=== PATIENT | male | born 1985 | race Caucasian/White ===

== ENCOUNTER 2018-08-19 17:50 | Emergency (ER) | payer BC ==
[~2018-08-19] VITALS: Ht 182.9 cm; Wt 109.1 kg
[2018-08-19 18:21] LABS: BASO # 0.1 10^3/uL (0.0-0.2); EOS # 0.8 10^3/uL (0.0-0.50); EOS % 12.4 % (0.0-3.0); HEMATOCRIT 45.4 % (42.0-52.0); HEMOGLOBIN 15.4 g/dl (13.5-17.5); LYMPH # 2.7 10^3/uL (1.5-4.5); MEAN CORPUSCULAR HEMOGLOBIN 31.1 pg (27.0-33.0); MEAN CORPUSCULAR HGB CONC 33.9 g/dl (32.0-36.5); MEAN CORPUSCULAR VOLUME 91.7 fl (80.0-96.0); MONO # 0.7 10^3/uL (0.0-0.8); MONO % 10.5 % (0.0-5.0); NEUTROPHILS # 2.5 10^3/uL (1.8-7.7); PLATELET COUNT, AUTOMATED 387 10^3/uL (150-450); RED BLOOD COUNT 4.95 10^6/uL (4.30-6.10); WHITE BLOOD COUNT 6.8 10^3/uL (4.0-10.0)
[2018-08-19 19:25] LABS: ALBUMIN 3.7 GM/DL (3.2-5.2); ALT/SGPT 81 U/L (12-78); AMYLASE 77 U/L (25-115); BILIRUBIN,DIRECT < 0.1 MG/DL (0.0-0.2); BILIRUBIN,TOTAL 0.3 MG/DL (0.2-1.0); BLOOD UREA NITROGEN 9 MG/DL (7-18); CALCIUM LEVEL 8.8 MG/DL (8.5-10.1); CARBON DIOXIDE LEVEL 29 MEQ/L (21-32); CHLORIDE LEVEL 105 MEQ/L (98-107); CREATININE FOR GFR 1.08 MG/DL (0.70-1.30); GLOMERULAR FILTRATION RATE > 60.0 (>60); GLUCOSE, FASTING 103 MG/DL (70-100); LIPASE 109 U/L (73-393); POTASSIUM SERUM 4.4 MEQ/L (3.5-5.1); SODIUM LEVEL 141 MEQ/L (136-145); TOTAL PROTEIN 7.5 GM/DL (6.4-8.2)
--- NOTE | 2018-08-19 19:45 | REPVR ---
EXAM: US Abdomen Limited, Right Upper Quadrant EXAM DATE/TIME: 08/19/2018 6:58 PM CLINICAL HISTORY: 33 years old, male; Pain; Abdominal pain; Localized; Right upper quadrant (ruq); Additional info: Ruq pain TECHNIQUE: Imaging protocol: Real-time ultrasound of the abdomen with image documentation. Examination was focused on the right upper quadrant. COMPARISON: No relevant prior studies available. FINDINGS: Liver: There is severe increased echogenicity of the liver consistent with severe fatty infiltration. Gallbladder: The gallbladder is fluid filled and there is no evidence of gallstones. The gallbladder wall measures 2 mm. Common bile duct: The common bile duct is normal in size measuring 5 mm. Pancreas: The pancreas is mostly obscured by bowel gas and cannot be evaluated. Right kidney: The right kidney measures 11 CM in length and there is no evidence of hydronephrosis. This was a limited ultrasound of the liver, gallbladder and right kidney. IMPRESSION: 1. No evidence of gallstones. 2. Severe fatty infiltration of the liver. 3. The pancreas is obscured by bowel gas. Electronically signed by: Blair Abraham On 08/19/2018 19:44:52 PM
[2018-08-19 20:05] LABS: APPEARANCE, URINE CLEAR (CLEAR); BACTERIA, URINE AUTO NEGATIVE (NEGATIVE); BILIRUBIN, URINE AUTO NEGATIVE (NEGATIVE); BLOOD, URINE BLOOD NEGATIVE (NEGATIVE); COLOR, URINE YELLOW (YELLOW); GLUCOSE, URINE (UA) AUTO NEGATIVE (NEGATIVE); KETONE, URINE AUTO NEGATIVE (NEGATIVE); LEUKOCYTE ESTERASE, URINE AUTO NEGATIVE (NEGATIVE); NITRITE, URINE AUTO NEGATIVE (NEGATIVE); PROTEIN, URINE AUTO NEGATIVE (NEGATIVE); RBC, URINE AUTO 1 /HPF (0-3); SPECIFIC GRAVITY URINE AUTO 1.005 (1.002-1.035); SQUAMOUS EPITHELIAL CELL UR AU 0 /HPF (0-6); UROBILINOGEN, URINE AUTO 0.2 mg/dL (0.0-2.0); WBC, URINE AUTO 0 /HPF (0-3)
[2018-08-19] MEDS ORDERED: ONDA4TAB6 PO (20:39)
[2018-08-19 20:46] VITALS: BP 126/60
[2018-08-19] MEDS ORDERED: ONDANSETRON 4 MG ORAL DISINTEGRATING TAB (Q0162 PER 1MG) PO ONE (21:00)
== END 2018-08-19 20:58 | disposition home or self-care (01) ==
LOC: M ED 17:50
DX: A08.4 Viral intestinal infection, unspecified (principal); K76.0 Fatty (change of) liver, not elsewhere classified; Z87.891 Personal history of nicotine dependence; Z91.018 Allergy to other foods; Z88.8 Allergy status to other drugs, medicaments and biological substances
CPT/HCPCS: 76705; 80048; 80076; 81001; 82150; 83690; 85025; 99284; Q0162

== ENCOUNTER → 2018-09-13 | Outpatient (REF) | payer BC ==
[~2018-09-13] MED LIST: ONDA4TAB6 PO
[2018-09-13 10:44] LABS: HEMATOCRIT 44.1 % (42.0-52.0); HEMOGLOBIN 14.8 g/dl (13.5-17.5); MEAN CORPUSCULAR HEMOGLOBIN 31.2 pg (27.0-33.0); MEAN CORPUSCULAR HGB CONC 33.6 g/dl (32.0-36.5); MEAN CORPUSCULAR VOLUME 92.8 fl (80.0-96.0); PLATELET COUNT, AUTOMATED 442 10^3/uL (150-450); RED BLOOD COUNT 4.75 10^6/uL (4.30-6.10); WHITE BLOOD COUNT 4.3 10^3/uL (4.0-10.0)
[2018-09-13 11:16] LABS: ALBUMIN 3.7 GM/DL (3.2-5.2); ALT/SGPT 77 U/L (12-78); BILIRUBIN,TOTAL 0.6 MG/DL (0.2-1.0); BLOOD UREA NITROGEN 8 MG/DL (7-18); CALCIUM LEVEL 9.1 MG/DL (8.5-10.1); CARBON DIOXIDE LEVEL 30 MEQ/L (21-32); CHLORIDE LEVEL 108 MEQ/L (98-107); CHOLESTEROL LEVEL 227 MG/DL (<200); CHOLESTEROL RISK RATIO 5.404 (<5); CREATININE FOR GFR 1.02 MG/DL (0.70-1.30); FERRITIN 46 NG/ML (26-388); GLOMERULAR FILTRATION RATE > 60.0 (>60); GLUCOSE, FASTING 89 MG/DL (70-100); HDL CHOLESTEROL 42 MG/DL (>40); IRON (FE) 151 UG/DL (65-175); LDL CHOLESTEROL 150 MG/DL (<100); NON-HDL-C 185 MG/DL; PERCENT SATURATION 39.1 % (19.7-50.0); POTASSIUM SERUM 4.1 MEQ/L (3.5-5.1); SODIUM LEVEL 141 MEQ/L (136-145); TOTAL IRON BINDING CAPACITY 386 UG/DL (250-450); TOTAL PROTEIN 7.2 GM/DL (6.4-8.2); TRIGLYCERIDES LEVEL 175 MG/DL (<150)
[2018-09-13 11:29] LABS: HEPATITIS B SURFACE ANTIGEN NEGATIVE (NEGATIVE)
[2018-09-13 11:56] LABS: HEPATITIS B CORE ANTIBODY IGM NEGATIVE (NEGATIVE)
[2018-09-13 11:58] LABS: HEPATITIS A ANTIBODY IGM NEGATIVE (NEGATIVE)
== END ==
LOC: M SFHCPLAZ 08:28
PROVIDERS: ATTEND Nurse Practitioner Family
DX: Z00.00 Encounter for general adult medical examination without abnormal findings (principal); K76.0 Fatty (change of) liver, not elsewhere classified; R94.5 Abnormal results of liver function studies; Z13.220 Encounter for screening for lipoid disorders

== ENCOUNTER → 2018-09-28 | Outpatient (REF) | payer BC | LOC: M LAB REF 14:48 | PROVIDERS: ATTEND Surgery | DX: D17.9 Benign lipomatous neoplasm, unspecified (principal) ==

== ENCOUNTER → 2018-10-17 | Outpatient (REF) | payer BC | LOC: M LAB REF 12:36 | PROVIDERS: ATTEND Surgery | DX: D17.1 Benign lipomatous neoplasm of skin and subcutaneous tissue of trunk (principal) ==

== ENCOUNTER → 2020-06-27 | Outpatient (CLI) | payer BC ==
[~2020-06-27] MED LIST changes: +NAPR-885 PO; +VITMTA PO
== END ==
LOC: M LABSMTC 09:40
PROVIDERS: ATTEND Anesthesiology
DX: Z01.812 Encounter for preprocedural laboratory examination (principal); Z20.822 Contact with and (suspected) exposure to COVID-19

== ENCOUNTER 2020-07-02 07:27 | Day surgery (SDC) | payer BC, OTHER ==
[~2020-07-02] VITALS: Ht 182.9 cm; Wt 103.0 kg
[~2020-07-02 07:27] MED LIST changes: +LIDOCAINE 1% MDV 20ML VIAL SQ PRN; +LR 1,000 ML IV ONE
--- OUTSIDE RECORDS SUMMARY | 2020-07-02 07:31 | CCD ---
Author Author [facility] Organization [facility] Address Unknown Phone Unavailable Care Team Providers Care Seat Cover Maker Name Role Phone Lyndon Casillas MD Unavailable Unavailable MollisonLyndon MD Unavailable Unavailable MollisonLyndon MD Unavailable Unavailable MollisonLyndon MD Unavailable Unavailable MollisonLyndon MD Unavailable Unavailable MollisonLyndon MD Unavailable Unavailable MollisonLyndon MD Unavailable Unavailable MollisonLyndon MD Unavailable Unavailable MollisonLyndon MD Unavailable Unavailable MollisonLyndon MD Unavailable Unavailable MollisonLyndon MD Unavailable Unavailable MollisonLyndon MD Unavailable Unavailable MollisonLyndon MD Unavailable Unavailable MollisonLyndon MD Unavailable Unavailable MollisonLydnon MD Unavailable Unavailable MollisonLyndon MD Unavailable Unavailable MollisonLyndon MD Unavailable Unavailable MollisonLyndon MD Unavailable Unavailable MollisonLyndon MD Unavailable Unavailable KamarisonLyndon MD Unavailable Unavailable KamarisonLyndon MD Unavailable Unavailable KamarisonLyndon MD Unavailable Unavailable MollisonLyndon MD Unavailable Unavailable MollisonLyndon MD Unavailable Unavailable MollisonLyndon MD Unavailable Unavailable MollisonLyndon MD Unavailable Unavailable Re-disclosure Warning The records that you are about to access may contain information from federally-assisted alcohol or drug abuse programs. If such information is present, then the following federally mandated warning applies: This information has been disclosed to you from records protected by federal confidentiality rules (42 CFR part 2). The federal rules prohibit you from making any further disclosure of this information unless further disclosure is expressly permitted by the written consent of the person to whom it pertains or as otherwise permitted by 42 CFR part 2. A general authorization for the release of medical or other information is NOT sufficient for this purpose. The Federal rules restrict any use of the information to criminally investigate or prosecute any alcohol or drug abuse patient.The records that you are about to access may contain highly sensitive health information, the redisclosure of which is protected by Article 27-F of the [facility] Public Health law. If you continue you may have access to information: Regarding HIV / AIDS; Provided by facilities licensed or operated by the [facility] Office of Mental Health; or Provided by the [facility] Office for People With Developmental Disabilities. If such information is present, then the following [facility] mandated warning applies: This information has been disclosed to you from confidential records which are protected by state law. State law prohibits you from making any further disclosure of this information without the specific written consent of the person to whom it pertains, or as otherwise permitted by law. Any unauthorized further disclosure in violation of state law may result in a fine or chcf sentence or both. A general authorization for the release of medical or other information is NOT sufficient authorization for further disc losure. Family History Family Member Name Family Member Gender Family Member Status Date o f Status Description Data Source(s) Unknown Male Problem [facility] ([facility]) Unknown Unknown Problem [facility] ([facility]) Encounters Encounter Providers Location Date Indications Data Source(s ) Outpatient Attender: Maximo Corrigan/Claude/Lonnie/Re indl 03/07/2020 09:10:00 AM EDT [facility] ([facility], ) Outpatient Attender: Maximo Corrigan/Claude/Lonnie/Re indl 01/25/2020 08:40:00 AM EDT [facility] ([facility], ) Outpatient 01/16/2020 09:15:00 AM EDT [facility] Out[facility] 01/16/2020 08:30:00 AM EDT [facility] Outpatient 01/16/2020 08:30:00 AM EDT [facility] Outpatient Attender: Maximo Corrigan/Claude/Lonnie/Re indl 12/26/2019 10:20:00 AM EDT [facility] ([facility], ) Outpatient Attender: Maximo Corrigan/Claude/Lonnie/Re indl 12/13/2019 10:30:00 AM EDT [facility] ([facility] ) Insurance Providers Payer name Policy type / Coverage type Policy ID Covered green party ID Covered green party's relationship to jimenez Policy Jimenez Plan Information [employer] [id number] [employer] [id number] SP [id number] [facility] Health Maintenance Organization (HMO) [id number] Self [id number] ANSI-Commercial [id number] [facility] Health Maintenance Organization (O) [id number] Self [id number] [employer] [id number] SP [id number] ANSI-Commercial [id number] [employer] [place] P[place] [id number] SP [id number] BS Federal Plan Commercial [id number] Self [id number] [employer] [place] [id number] S [id number] Surgeries/Procedures Procedure Description Date Indications Data Source(s) X-Ray Shoulder Complete 12/13/2019 12:00:00 AM EDT [facility] ([facility], ) RADEX SHOULDER COMPLETE MINIMUM 2 VIEWS 12/13/2019 12: 00:00 AM EDT [facility] ([facility]) Results ID Date Data Source [id number] 06/27/2020 09:35:00 AM EST [facility] Name Value Range Interpretation Code Description Data Hannah rce(s) Supporting Document(s) SARS coronavirus 2 RNA Not Detected [facility] This lab was ordered by [facility] and reported by [facility]. ID Date Data Source [id number] 01/16/2020 11:14:00 AM EDT [facility] MRI UPR EXT LEFT W Contrast Joint INDICA TION: Pain in left shoulder COMPARISON: None TECHNIQUE: Multiplanar imaging is performed of the left shoulder using multiple pulse sequences, following fluoroscopically guided injection of contrast material for MR arthrography. FINDINGS: Fluid within the joint extends into the subscapular recess and subcoracoid bursa. There is an extra synovial ganglion cyst associated with tear in the 6:00-7:00 position of the inferior glenoid/infraglenoid ligament. The complicated extra synovial ganglion cyst measures 2.1 x 2.0 x 1.6 cm, containing internal debris and septations. A tear is seen in the anterior aspect of the glenoid labrum at approximately 8:30 o'clock-9:30 o'clock, series 7 image 8. Tendinosis of the anterior supraspinatus. No rotator cuff tear identified. Increased signal noted within the proximal aspect of the long head of the biceps. Probable focal tear in the anterior aspect of the tendon of the long head of the biceps as it inserts on the superior glenoid. IMPRESSION: Focal tear at the insertion of the tendon of long head of the biceps at the insertion on the superior glenoid. 8:30 o'clock- 9:30 o'clock tear of the anterior glenoid. Tear in the inferior glenoid 7:00- 6:00 with approximately 2 cm complicated extrasynovial ganglion cyst. Professional interpretation performed at [facility] . Name Value Range Interpretation Code Description Data [facility](s) Supporting Document(s) ID Date Data Source [id number] 01/16/2020 09:23:00 AM EDT [employer] Fluoroscopic Guidance For Needle Placeme ntINDICATION: Left shoulder pain, MRI arthrogramRadiation Exposure Time: 10.6 secNumber Of Images Obtained: 1 IMPRESSION: Fluoroscopic supervision during left shoulder contrast injection. Professional interpretation performed at [facility] . Name Value Range Interpretation Code Description Data Hannah rce(s) Supporting Document(s) ID Date Data Source [id number] 01/16/2020 03:58:00 PM EDT [employer] Left SHOULDER ARTHROGRAM w/ MRI TO FOLLO W INDICATION: Left shoulder pain TECHNIQUE/FINDINGS: Informed consent was obtained. The left shoulder was prepped and draped in the usual sterile fashion. 1% Lidocaine was injected as a local anesthetic. A 3.5 inch 22-Gauge spinal needle was guided into the shoulder capsule under fluoroscopic visualization. A solution containing Gadolinium, Omni-300 and a sterile water solution was then injected. Fluoroscopy was personally supervised by Dr. Vizcarra Radiation Exposure Time: 10.6 seconds Number of images obtained: 1 IMPRESSION: Left shoulder arthrogram as described. Please associated MRI report. Procedure performed by MAYCO Robbins. Professional interpretation performed at [facility] . Name Value Range Interpretation Code Description Data Hannah rce(s) Supporting Document(s) Procedure Vital Signs ID Date Data Source UNK Name Value Range Interpretation Code Description Data Source(s) Body weight 103.421 kg 103.421 kg [facility] ([facility]) [place] body weight 178 [lb_av] 178 [lb_av] [facility]) Body mass index (BMI) [Ratio] 30.9 kg/m2 30.9 k g/m2 [facility] ([facility]) Body weight 228.00 [lb_av] 228.00 [lb_av] [facility] ([facility]) Body height 72 [in_i] 72 [in_i] [facility] ([facility]) 6'0" Body temperature 97.4 [degF] 97.4 [degF] [facility] ([facility])
[2020-07-02] MEDS ORDERED: CLAR10CA3 PO (07:58)
[2020-07-02] MEDS ORDERED: propofoL 200 MG/20 ML VIAL As Ordered ONE (08:42)
[2020-07-02] MEDS ORDERED: dexameTHASONE 4 MG/ML 1ML VIAL (J1100 PER 1MG) As Ordered ONE (08:42)
[2020-07-02] MEDS ORDERED: ACETAMINOPHEN 1000MG 100ML IV BTL (OFIRMEV) (J0131 PER 10MG) As Ordered ONE (08:42)
[2020-07-02] MEDS ORDERED: LIDOCAINE 2% 100MG/5ML SDV (FOR ANES.) As Ordered ONE (08:42)
[2020-07-02] MEDS ORDERED: MIDAZOLAM INJ 2MG/2ML VIAL (J2250 PER 1MG) As Ordered ONE (08:42)
[2020-07-02] MEDS ORDERED: SUGAMMADEX SODIUM 500 MG/5 ML VIAL (BRIDION) As Ordered ONE (08:42)
[2020-07-02] MEDS ORDERED: ROCURONIUM BROMIDE 50 MG/5 ML VIAL As Ordered ONE (08:42)
[2020-07-02] MEDS ORDERED: ONDANSETRON 4MG/2ML VIAL As Ordered ONE (08:42)
[2020-07-02] MEDS ORDERED: KETOROLAC 60MG 2ML VIAL As Ordered ONE (08:42)
[2020-07-02] MEDS ORDERED: fentaNYL 100 MCG/2 ML INJECTION (J3010) As Ordered ONE (08:43)
[2020-07-02] MEDS ORDERED: CLINDAMYCIN 600 MG/50 ML PREMIX BAG As Ordered ONE (09:10)
[2020-07-02] MEDS ORDERED: EPINEPHrine INJ 1 MG/ML 1ML AMP XX ONE (09:15)
[2020-07-02] MEDS ORDERED: dexameTHASONE 10MG/1ML VIAL PRES.FREE (J1100 PER 1MG) XX ONE (09:15)
[2020-07-02] MEDS ORDERED: BUPIVACAINE HCL 0.5% 30 ML VIAL XX ONE (09:15)
[2020-07-02] MEDS ORDERED: LIDOCAINE 1% MDV 20ML VIAL XX ONE (09:15)
[2020-07-02] MEDS: fentaNYL 100 MCG/2 ML INJECTION (J3010) IV PRN ×2 (09:43→09:53)
[2020-07-02] MEDS: MIDAZOLAM INJ 2MG/2ML VIAL (J2250 PER 1MG) IV PRN ×2 (09:43→09:44)
[2020-07-02] MEDS ORDERED: CLINDAMYCIN 600 MG in IV 1 EA IV ONE (09:45)
[2020-07-02] MEDS ORDERED: EPINEPHrine 1MG/ML INJ 30ML MD-VIAL As Ordered ONE (09:48)
[2020-07-02] MEDS ORDERED: fentaNYL 100 MCG/2 ML INJECTION (J3010) IV PRN (12:10)
[2020-07-02] MEDS ORDERED: PERCOCET 5MG/325MG TAB PO PRN ×2 (12:10→12:15)
[2020-07-02] MEDS ORDERED: LR 1,000 ML IV SCH ×2 (12:10→12:15)
[2020-07-02] MEDS ORDERED: METOCLOPRAMIDE INJ 10MG/2ML VIAL (J2765 PER 1) IV PRN (12:10)
[2020-07-02] MEDS ORDERED: ONDANSETRON 4MG/2ML VIAL IV PRN ×2 (12:10→12:15)
[2020-07-02] MEDS ORDERED: MORPHINE 2 MG/ML 1ML VIAL (J2270) IV PRN (12:15)
[2020-07-02] MEDS ORDERED: ACETAMINOPHEN TAB 650MG DOSE (2X325MG) PO PRN (12:15)
[2020-07-02 12:50] VITALS: BP 139/80
--- NOTE | 2020-07-02 14:39 | RO ---
OPERATIVE NOTE DATE OF OPERATION: 07/02/2020 PREOPERATIVE DIAGNOSIS: Left shoulder instability. POSTOPERATIVE DIAGNOSIS: Left shoulder instability. PLANNED PROCEDURE: Left shoulder arthroscopy, stabilization, and possible biceps tenodesis. PROCEDURES PERFORMED: Left shoulder arthroscopy, labral repair, and stabilization. SURGEON: Maximo Casillas MD ANESTHESIOLOGIST: Kranthi Sampson M.D. ANESTHESIA: General anesthetic and preoperative block. OPERATIVE PREAMBLE: This 35-year-old man had signs of inferior labral tear, as well as posterior labral tear with paralabral cyst and possible superior labrum anterior to posterior SLAP tear. He wished to go ahead with surgery after a prolonged course of nonsurgical management. This was for a right shoulder arthroscopy, stabilization, and possible biceps tenodesis. He wished to go ahead and signed the consent form for surgery, as well as the possible need for blood products. We marked the left upper extremity and proceeded to surgery. He had no further questions. The patient received a preoperative block. DESCRIPTION OF PROCEDURE: The patient was brought to the operating theater. He was placed in the left lateral decubitus with the aid of the heaton bag positioner. Axillary roll was placed. All bony prominences were appropriate padded including at the peroneal nerve. General anesthesia was induced. The limb was prepped and draped in the usual sterile fashion. Chlorhexidine based prep solution was used allowing this to thoroughly dry for over three minutes prior to draping. Then 600 mg of IV clindamycin was administered due to cephalosporin allergy for surgical prophylaxis. The arm was prepped and draped in the usual sterile fashion with 15 pounds of traction and the traction set up at 45 degrees of abduction at the shoulder. Preoperative time-out was performed to confirm the site, the patient, and the surgery. I began by making the standard posterior arthroscopy portal and inserting the arthroscope into the joint. I made standard anterior-superior, as well as anterior going through the rotator interval portal and used a small Arthrex size 5 cannula, as well as an 8.3 mm cannula inferior to this just above the subscapularis tendon. I also used another purple 8.3 mm cannula posterior switching stick. I examined the full intraarticular extent of the shoulder. Glenoid and humeral head cartilage were normal. Normal axillary recess. No loose bodies. No Hill-Sachs deformity. Normal bare spot on the humerus, as well as on the glenoid. Undersurface of the rotator cuff tendon appeared normal. Biceps tendon appeared normal along with the root being stable. No synovitis, no rupture, no tears, and no obvious SLAP tear. Biceps groove was stable and solid to probing. There was, however, a labral tear from approximately 3:30 with a 3 p.m. being anteriorly to approximately 7 o'clock in the posterior-inferior aspect of the glenoid. I used an elevator to elevate the tissue around the tear and then used a shaver to create a bleeding bed of bone for the labrum to be able to heal down. I cleaned up a small amount of frayed labrum with the shaver and a small flap at approximately the 11 o'clock position. I then inserted the scope anteriorly. I used labral tape in a luggage tag stitch formation at the 7 o'clock aspect of the labrum. I performed a thorough decompression to try to decompress the paralabral cyst in that location as well as slightly proximal to this near the 8 o'clock to 8:30 position. I then used an Arthrex 2.9 mm PushLock anchor at approximately the 7 o'clock position, tapped this in place, and cut the sutures short. I then performed a similar technique at the anterior-inferior labrum inserting anchors with an inferior to superior and anterior to posterior capsular labral shift. I inserted three anterior-inferior anchors at the 5:30, 4:30 and 3:30 positions, again using Arthrex 2.9 mm BioComposite PushLock anchors with labral tape and luggage tag type stitches. This achieved a very stable fixation of the labrum. Threaded cannulas were removed. Wound was sterilely irrigated and portal sites closed with interrupted 2-0 Vicryl sutures. The skin was covered with a wet-to-dry dressing followed by application of Steri-Strips, Adaptic, 4 x 4 gauze, ABD dressing, cloth tape, and then a sling to the upper extremity. The patient was awoken from general anesthetic, transferred off the operating table, and taken to the postanesthetic unit in stable condition. All sponge count, needle count, and instrument counts were correct. No complications. Estimated blood loss 20 mL. PLAN: The patient will be discharged to home according to surgical criteria. I spoke to Cass as per the patient's request after surgery. I informed her of the postoperative aftercare, as well as narcotic counseling. A prescription will be sent to [facility]. Follow-up in the office in two weeks time. I started him with pendulum exercises, hand, wrist and elbow exercises; but no lifting of the upper extremity and definitely no external rotation beyond neutral. MARLENE
== END 2020-07-02 13:10 | disposition home or self-care (01) ==
LOC: M SDC 07:27
PROVIDERS: ATTEND Orthopaedic Surgery Sports Medicine
DX: M25.311 Other instability, right shoulder (principal); S43.492A Other sprain of left shoulder joint, initial encounter; F17.220 Nicotine dependence, chewing tobacco, uncomplicated; R76.11 Nonspecific reaction to tuberculin skin test without active tuberculosis; X58.XXXA Exposure to other specified factors, initial encounter; Y92.9 Unspecified place or not applicable; Y93.9 Activity, unspecified; Y99.9 Unspecified external cause status; Z88.1 Allergy status to other antibiotic agents; Z91.018 Allergy to other foods; Z91.030 Bee allergy status
CPT/HCPCS: 29807; 64415; C1713; J0131; J1100; J1885; J2250; J2405; J3010

== ENCOUNTER → 2020-11-12 | Outpatient (REF) | payer BC ==
[~2020-11-12] MED LIST changes: +CLAR10CA3 PO; -LIDOCAINE 1% MDV 20ML VIAL SQ PRN; -LR 1,000 ML IV ONE
== END ==
LOC: M SMT 13:24
PROVIDERS: ATTEND Urology
DX: Z30.2 Encounter for sterilization (principal)

== ENCOUNTER → 2021-01-07 | Outpatient (REF) | payer BC ==
[2021-01-07 13:39] LABS: SEMEN APPEARANCE OPAQUE (OPAQUE); SEMEN VISCOSITY LIQUID (LIQUID); SEMEN VOLUME 5.2 ml (2.0-5.0)
[2021-01-07 13:40] LABS: WBC CONCENTRATION <=1 M/ml (<=1 M/ml)
== END ==
LOC: M SMT 13:29
PROVIDERS: ATTEND Urology
DX: Z30.8 Encounter for other contraceptive management (principal)

== ENCOUNTER → 2021-01-26 | Outpatient (CLI) | payer BC ==
--- NOTE | 2021-01-26 10:37 | REP ---
INDICATION: ORTHOPEDIC AFTERCARE. COMPARISON: None. TECHNIQUE: Five views FINDINGS: The acromioclavicular and glenohumeral relationships are within normal limits. There is no fracture, dislocation, or subluxation. IMPRESSION: Within normal limits <Electronically signed by Demetrius Tyson > 01/26/21 [id number]
== END ==
LOC: M SOG 09:23
PROVIDERS: ATTEND Orthopaedic Surgery Sports Medicine
DX: Z47.89 Encounter for other orthopedic aftercare (principal)

== ENCOUNTER → 2021-02-04 | Outpatient (REF) | payer BC ==
[2021-02-04 12:25] LABS: SEMEN APPEARANCE OPAQUE (OPAQUE); SEMEN VISCOSITY LIQUID (LIQUID); WBC CONCENTRATION >1 M/ml (<=1 M/ml)
== END ==
LOC: M SMT 12:07
PROVIDERS: ATTEND Urology
DX: Z30.8 Encounter for other contraceptive management (principal)

== ENCOUNTER → 2021-04-27 | Outpatient (CLI) | payer OTHER ==
--- NOTE | 2021-04-27 08:55 | REP ---
INDICATION: CERVICALGIA COMPARISON: None. TECHNIQUE: AP, lateral, swimmer's and coned-down views of the lumbar spine. FINDINGS: Three views of the lumbosacral spine demonstrate satisfactory alignment and lordosis without acute fracture / compression injury or subluxation. No significant degenerative changes. IMPRESSION: 1. No acute fracture / compression injury or subluxation. 2. Age-appropriate examination. No degenerative changes noted. <Electronically signed by Shane Chavez > 04/27/21 [id number]
== END ==
LOC: M SOG 08:25
PROVIDERS: ATTEND Orthopaedic Surgery
DX: M54.2 Cervicalgia (principal)

== ENCOUNTER → 2021-08-19 | Outpatient (CLI) | payer BC ==
[~2021-08-19] MED LIST changes: +FLOM0.4C39 PO; +KETO10TAB PO; +METH-1164
== END ==
LOC: M EKG 11:05
PROVIDERS: ATTEND Internal Medicine Hematology
DX: R00.2 Palpitations (principal)

== ENCOUNTER → 2021-09-02 | Outpatient (CLI) | payer BC ==
[2021-09-02 10:46] LABS: HEMATOCRIT 43.7 % (42.0-52.0); HEMOGLOBIN 14.4 g/dl (13.5-17.5); MEAN CORPUSCULAR HEMOGLOBIN 30.8 pg (27.0-33.0); MEAN CORPUSCULAR VOLUME 93.4 fl (80.0-96.0); PLATELET COUNT, AUTOMATED 416 10^3/uL (150-450); RED BLOOD COUNT 4.68 10^6/uL (4.30-6.10); WHITE BLOOD COUNT 4.2 10^3/uL (4.0-10.0)
[2021-09-02 11:09] LABS: HEMOGLOBIN A1c 5.1 %
[2021-09-02 11:25] LABS: ALBUMIN 3.8 GM/DL (3.2-5.2); ALT/SGPT 30 U/L (12-78); BILIRUBIN,TOTAL 0.5 MG/DL (0.2-1.0); BLOOD UREA NITROGEN 9 MG/DL (7-18); CALCIUM LEVEL 9.2 MG/DL (8.5-10.1); CARBON DIOXIDE LEVEL 29 MEQ/L (21-32); CHLORIDE LEVEL 108 MEQ/L (98-107); CHOLESTEROL LEVEL 171 MG/DL (<200); CHOLESTEROL RISK RATIO 4.071 (<5); CREATININE FOR GFR 1.18 MG/DL (0.70-1.30); FREE T4 1.06 NG/DL (0.76-1.46); GLOMERULAR FILTRATION RATE > 60.0 (>60); GLUCOSE, FASTING 88 MG/DL (70-100); HDL CHOLESTEROL 42 MG/DL (>40); LDL CHOLESTEROL 107 MG/DL (<100); NON-HDL-C 129 MG/DL; POTASSIUM SERUM 4.8 MEQ/L (3.5-5.1); SODIUM LEVEL 141 MEQ/L (136-145); TOTAL PROTEIN 7.2 GM/DL (6.4-8.2); TRIGLYCERIDES LEVEL 108 MG/DL (<150)
[2021-09-02 11:40] LABS: TOTAL 25(OH) VITAMIN D 34.7 NG/ML (30.0-100.0); VITAMIN B12 LEVEL 499 PG/ML (247-911)
[2021-09-02 11:44] LABS: MALB URINE SIEMENS 5.9 MG/L; MAU/CREAT RATIO 2.6 MCG/MG (0.0-30.0)
[2021-09-03 15:08] LABS: INSULIN LEVEL 8.8 uIU/mL (2.6-24.9); LIPOPROTEIN (a) <9.0 nmol/L (<75.0)
== END ==
LOC: M PLALAB 07:32
PROVIDERS: ATTEND Internal Medicine Hematology
DX: E78.5 Hyperlipidemia, unspecified (principal)

== ENCOUNTER → 2021-09-14 | Outpatient (CLI) | payer BC | LOC: M SOG 09:19 | PROVIDERS: ATTEND Orthopaedic Surgery | DX: M25.612 Stiffness of left shoulder, not elsewhere classified (principal) ==

== ENCOUNTER → 2021-09-25 | Outpatient (CLI) | payer OTHER | LOC: M PLAIMG 08:31 | PROVIDERS: ATTEND Orthopaedic Surgery | DX: M54.12 Radiculopathy, cervical region (principal) ==

== ENCOUNTER → 2022-04-12 | Outpatient (CLI) | payer OTHER, BC ==
[~2022-04-12] MED LIST changes: +ISOVUE-300 61% 50ML VIAL ONE; +LIDOCAINE 1% MDV 20ML VIAL ONE; +PROHANCE 279.3MG/ML 5ML VIAL ONE
== END ==
LOC: M PLAIMG 12:21
PROVIDERS: ATTEND Orthopaedic Surgery
DX: S46.012D Strain of muscle(s) and tendon(s) of the rotator cuff of left shoulder, subsequent encounter (principal); M25.612 Stiffness of left shoulder, not elsewhere classified
CPT/HCPCS: 23350; 73223; 77002; A9576

== ENCOUNTER → 2022-09-10 | Outpatient (CLI) | payer BC, OTHER ==
[~2022-09-10] MED LIST changes: -ISOVUE-300 61% 50ML VIAL ONE; -LIDOCAINE 1% MDV 20ML VIAL ONE; -PROHANCE 279.3MG/ML 5ML VIAL ONE
[2022-09-10 10:30] LABS: HEMATOCRIT 42.8 % (42.0-52.0); HEMOGLOBIN 14.5 g/dl (13.5-17.5); MEAN CORPUSCULAR HEMOGLOBIN 32.1 pg (27.0-33.0); MEAN CORPUSCULAR HGB CONC 33.9 g/dl (32.0-36.5); MEAN CORPUSCULAR VOLUME 94.7 fl (80.0-96.0); PLATELET COUNT, AUTOMATED 320 10^3/uL (150-450); RED BLOOD COUNT 4.52 10^6/uL (4.30-6.10); WHITE BLOOD COUNT 4.9 10^3/uL (4.0-10.0)
[2022-09-10 10:35] LABS: C REACTIVE PROTEIN QUANTITATIV < 0.40 MG/DL (<1.0)
[2022-09-10 10:37] LABS: ALBUMIN 3.9 G/DL (3.2-5.2); ALKALINE PHOSPHATASE 52 U/L (46-116); ALT/SGPT 26 U/L (7.0-40); AST/SGOT 16 U/L (<34); BILIRUBIN,TOTAL 0.7 MG/DL (0.3-1.2); BLOOD UREA NITROGEN 13 MG/DL (9-23); CALCIUM LEVEL 9.2 MG/DL (8.5-10.1); CARBON DIOXIDE LEVEL 30 MMOL/L (20-31); CHLORIDE LEVEL 106 MMOL/L (98-107); CHOLESTEROL LEVEL 195 MG/DL (<200); CHOLESTEROL RISK RATIO 4.08 (<5); CREATININE FOR GFR 1.01 MG/DL (0.70-1.30); GLOMERULAR FILTRATION RATE > 60.0 (>60); GLUCOSE, FASTING 90 MG/DL (60-100); HDL CHOLESTEROL 47.7 MG/DL (>40); LDL CHOLESTEROL 122.9 MG/DL (<100); NON-HDL-C 147.3 MG/DL; POTASSIUM SERUM 4.8 MMOL/L (3.5-5.1); SODIUM LEVEL 140 MMOL/L (136-145); TOTAL PROTEIN 7.2 G/DL (5.7-8.2); TRIGLYCERIDES LEVEL 122 MG/DL (<150)
[2022-09-10 10:41] LABS: FREE T4 1.16 NG/DL (0.89-1.76); THYROID STIMULATING HORMONE 2.106 uIU/ML (0.55-4.78); TOTAL 25(OH) VITAMIN D 37.5 NG/ML (20.0-100.0); VITAMIN B12 LEVEL 560 PG/ML (211-911)
[2022-09-10 11:05] LABS: CREATININE, URINE 230.5 MG/DL; MALB URINE SIEMENS < 3.0 MG/L; MAU/CREAT RATIO 1.3 MCG/MG (0.0-30.0)
[2022-09-10 11:06] LABS: HEMOGLOBIN A1c 5.1 % (4.0-6.0)
== END ==
LOC: M PLALAB 08:07
PROVIDERS: ATTEND Internal Medicine Hematology
DX: E78.5 Hyperlipidemia, unspecified (principal)

== ENCOUNTER → 2023-03-07 | Outpatient (REF) | payer BC | LOC: M SFHCDERM 14:11 | PROVIDERS: ATTEND Physician Assistant | DX: I78.1 Nevus, non-neoplastic (principal) ==

== ENCOUNTER → 2023-04-20 | Outpatient (REF) | payer BC | LOC: M SFHCDERM 14:50 | PROVIDERS: ATTEND Physician Assistant | DX: D48.5 Neoplasm of uncertain behavior of skin (principal) ==

== ENCOUNTER → 2023-11-29 | Outpatient (REF) | payer BC ==
[~2023-11-29] MED LIST changes: +ONDA-282 PO; -ONDA4TAB6 PO
== END ==
LOC: M LAB REF 16:06
PROVIDERS: ATTEND Surgery
DX: D17.1 Benign lipomatous neoplasm of skin and subcutaneous tissue of trunk (principal)

== ENCOUNTER → 2024-03-09 | Outpatient (CLI) | payer BC ==
[2024-03-09 11:20] LABS: BASO # 0.1 10^3/uL (0.0-0.2); BASO % 1.3 % (0.0-1.0); EOS # 0.5 10^3/uL (0.0-0.5); EOS % 10.2 % (0.0-3.0); HEMATOCRIT 43.5 % (42.0-52.0); HEMOGLOBIN 14.6 g/dl (13.5-17.5); LYMPH % 43.9 % (24.0-44.0); MEAN CORPUSCULAR HEMOGLOBIN 31.8 pg (27.0-33.0); MEAN CORPUSCULAR HGB CONC 33.6 g/dl (32.0-36.5); MEAN CORPUSCULAR VOLUME 94.8 fl (80.0-96.0); MONO # 0.7 10^3/uL (0.0-0.8); MONO % 14.7 % (2.0-8.0); NEUTROPHILS # 1.3 10^3/uL (1.5-8.5); NEUTROPHILS % 29.7 % (36.0-66.0); PLATELET COUNT, AUTOMATED 364 10^3/uL (150-450); RED BLOOD COUNT 4.59 10^6/uL (4.30-6.10); WHITE BLOOD COUNT 4.5 10^3/uL (4.0-10.0)
[2024-03-09 11:21] LABS: C REACTIVE PROTEIN QUANTITATIV < 0.40 MG/DL (<1.0)
[2024-03-09 11:23] LABS: ALBUMIN 3.5 G/DL (3.2-5.2); ALKALINE PHOSPHATASE 64 U/L (40-129); ALT/SGPT 24 U/L (7.0-40); AST/SGOT 13 U/L (<34); BILIRUBIN,TOTAL 0.4 MG/DL (0.3-1.2); BLOOD UREA NITROGEN 15 MG/DL (9-23); CALCIUM LEVEL 9.9 MG/DL (8.5-10.1); CARBON DIOXIDE LEVEL 28 MMOL/L (20-31); CHLORIDE LEVEL 108 MMOL/L (98-107); CHOLESTEROL LEVEL 203 MG/DL (<200); CHOLESTEROL RISK RATIO 4.23 (<5); CREATININE FOR GFR 0.93 MG/DL (0.70-1.30); GLOMERULAR FILTRATION RATE > 60.0 (>60); GLUCOSE, FASTING 87 MG/DL (60-100); HDL CHOLESTEROL 47.9 MG/DL (>40); LDL CHOLESTEROL 126.7 MG/DL (<100); NON-HDL-C 155.1 MG/DL; POTASSIUM SERUM 4.6 MMOL/L (3.5-5.1); SODIUM LEVEL 141 MMOL/L (136-145); TOTAL PROTEIN 7.3 G/DL (5.7-8.2); TRIGLYCERIDES LEVEL 142 MG/DL (<150)
[2024-03-09 11:24] LABS: FREE T4 1.24 NG/DL (0.89-1.76); VITAMIN B12 LEVEL 561 PG/ML (211-911)
[2024-03-09 11:25] LABS: THYROID STIMULATING HORMONE 2.693 uIU/ML (0.55-4.78); TOTAL 25(OH) VITAMIN D 46.5 NG/ML (20.0-100.0)
[2024-03-09 11:36] LABS: HEMOGLOBIN A1c 5.1 % (4.0-6.0)
== END ==
LOC: M PLALAB 07:17
PROVIDERS: ATTEND Internal Medicine Hematology
DX: K76.0 Fatty (change of) liver, not elsewhere classified (principal)

== ENCOUNTER → 2025-01-10 | Outpatient (REF) | payer BC ==
[~2025-01-10] MED LIST changes: -FLOM0.4C39 PO; +TAMS-18 PO
== END ==
LOC: M SFHCPLAZ 12:57
PROVIDERS: ATTEND Family Medicine
DX: Z53.9 Procedure and treatment not carried out, unspecified reason (principal)

== ENCOUNTER → 2025-01-15 | Outpatient (CLI) | payer BC ==
[2025-01-15 10:27] LABS: PLATELET COUNT, AUTOMATED 358 10^3/uL (150-450)
[2025-01-15 10:55] LABS: ALT/SGPT 24 U/L (7.0-40); AST/SGOT 16 U/L (<34); CALCIUM LEVEL 9.6 MG/DL (8.5-10.1); CARBON DIOXIDE LEVEL 29 MMOL/L (20-31); CHLORIDE LEVEL 106 MMOL/L (98-107); CHOLESTEROL LEVEL 188 MG/DL (<200); CHOLESTEROL RISK RATIO 3.68 (<5); CREATININE FOR GFR 0.99 MG/DL (0.70-1.30); GLOMERULAR FILTRATION RATE > 90.0 (>60); LDL CHOLESTEROL 108.2 MG/DL (<100); NON-HDL-C 137.0 MG/DL; POTASSIUM SERUM 4.7 MMOL/L (3.5-5.1); SODIUM LEVEL 144 MMOL/L (136-145); TRIGLYCERIDES LEVEL 144 MG/DL (<150)
[2025-01-15 10:56] LABS: TOTAL 25(OH) VITAMIN D 54.5 NG/ML (20.0-100.0)
[2025-01-15 10:57] LABS: FREE T4 1.31 NG/DL (0.89-1.76); VITAMIN B12 LEVEL 706 PG/ML (211-911)
== END ==
LOC: M PLALAB 08:29
PROVIDERS: ATTEND Family Medicine
DX: Z00.00 Encounter for general adult medical examination without abnormal findings (principal)

== ENCOUNTER → 2025-01-31 | Outpatient (CLI) | payer BC | LOC: M PLAIMG 08:34 | PROVIDERS: ATTEND Family Medicine | DX: M19.012 Primary osteoarthritis, left shoulder (principal) ==